=== PATIENT | female | born 1975 | race African-American/Black ===

== ENCOUNTER 2018-08-15 17:19 | Emergency (ER) | payer MEDICAID ==
[~2018-08-15] VITALS: Ht 157.5 cm; Wt 53.0 kg
[2018-08-15] MEDS ORDERED: KETOROLAC 15MG/ML VIAL IM ONE (21:30)
[2018-08-15 22:27] VITALS: BP 151/101
== END 2018-08-15 23:13 | disposition home or self-care (01) ==
LOC: ER 17:47
DX: M79.631 Pain in right forearm (principal); M25.512 Pain in left shoulder
CPT/HCPCS: 73030; 73090; 96372; 99283; J1885